=== PATIENT | male | born 1990 | race Two or more races ===

== ENCOUNTER 2021-11-30 17:21 | Emergency (ER) | payer SELFPAY ==
[2021-11-30 17:45] VITALS: TEMP 98; BMI 27.3
[2021-11-30] MEDS ORDERED: ASPIRIN 81 MG CHEWABLE TABLETS PO ONE (19:16)
[2021-11-30] MEDS ORDERED: ASPIRIN 81 MG CHEWABLE TABLETS ONE (19:57)
[2021-11-30 20:38] LABS: BASO % 0.9 % (0-2.0); EOS % 0.5 % (0-4.5); HEMATOCRIT 40.8 % (35.4-49); LYMPH % 17.6 % (8-40); MCH 30.7 pg (25.7-33.7); MCHC 34.3 g/dl (32.0-35.9); MEAN CELL VOLUME 89.7 fl (80-96); MEAN PLT VOLUME 7.1 fl (7.5-11.1); MONO % 4.8 % (3.8-10.2); NEUT % 76.2 % (42.8-82.8); PLATELET COUNT 298 10^3/uL (134-434); RBC 4.54 M/mm3 (4.00-5.60); RDW 13.8 % (11.9-15.9); WHITE BLOOD COUNT 11.3 K/mm3 (4.0-10.0)
[2021-11-30 20:45] LABS: ALBUMIN 3.9 g/dl (3.4-5.0); BLOOD UREA NITROGEN 8.5 mg/dL (7-18); CALCIUM 8.8 mg/dL (8.5-10.1); MAGNESIUM 2.4 mg/dL (1.8-2.4)
[2021-11-30 20:49] LABS: CREATININE 0.7 mg/dL (0.55-1.3)
[2021-11-30 20:50] LABS: BILIRUBIN,TOTAL 0.4 mg/dL (0.2-1)
[2021-11-30 21:23] VITALS: BP 98/61; PULSE 60; RESP 18
== END 2021-11-30 21:20 | disposition home or self-care (01) ==
LOC: JER 17:21
DX: F41.9 Anxiety disorder, unspecified (principal)
CPT/HCPCS: 36415; 71046-TC-FY; 80053; 83735; 84484; 85025; 93005; 93010; 99285-25